=== PATIENT | male | born 1955 | race Caucasian/White ===

== ENCOUNTER → 2019-09-10 | Outpatient (CLI) | payer BC ==
[2016-02-25 11:45] VITALS: BP 125/78
[~2019-09-10] MED LIST: AMLODIPINE BESYL5 MG PO; PRAVASTATIN SOD10 MG PO
== END ==
LOC: RAD 08:32
DX: N32.89 Other specified disorders of bladder (principal); N21.0 Calculus in bladder; N28.1 Cyst of kidney, acquired
CPT/HCPCS: Q9967

== ENCOUNTER 2021-07-20 08:50 | Observation (INO) | payer MEDICARE ==
[~2021-07-20] VITALS: Ht 10 cm; Wt 85.2 kg
[2021-07-20] MEDS ORDERED: LYMEPAK100 MG PO (09:22)
[2021-07-20] MEDS ORDERED: PREDNISONE10 MG PO (09:23)
[2021-07-20] MEDS ORDERED: PRAVASTATIN SOD40 MG PO (09:24)
[2021-07-20 09:41] LABS: BASO # 0.04 K/mm3 (0.02-0.10); EOS # 0.07 K/mm3 (0.04-0.40); EOS % 0.4 % (0.0-4.0); HEMATOCRIT 46.5 % (42.0-52.0); LYMPH# 0.87 K/mm3 (1.50-4.00); MEAN CELL VOLUME 83 fl (78-100); MEAN CORPUSCULAR HEMOGLOBIN 29 pg (27-31); MEAN CORPUSCULAR HGB CONC 34 g/dL (33-37); MEAN PLATELET VOLUME 9.8 fl (7.4-10.4); MONO # 0.81 K/mm3 (0.20-0.80); NEU # 13.77 K/mm3 (1.40-6.50); PLATELET COUNT 266 K/mm3 (130-400); RED BLOOD COUNT 5.62 M/mm3 (4.20-5.60); RED CELL DISTRIBUTION WIDTH 12.5 % (11.5-14.5); WHITE BLOOD COUNT 15.6 K/mm3 (4.8-10.8)
[2021-07-20 10:01] LABS: ALBUMIN 4.7 g/dL (3.4-4.8); POTASSIUM 3.6 mmol/L (3.5-5.1)
[2021-07-20 10:02] LABS: CALCIUM 10.1 mg/dL (8.3-10.5)
[2021-07-20] MEDS ORDERED: FISH OIL 1000MG1 CAP PO (10:15)
[2021-07-20] MEDS ORDERED: CENTRUM ADULTS1 EACH PO (10:16)
[2021-07-20] MEDS ORDERED: ACETAMINOPHEN500 M7 PO (10:16)
[2021-07-20 11:54] VITALS: BP 158/98
[2021-07-20 12:13] LABS: URINE WBC 0 /hpf (0-3)
[2021-07-20 12:48] LABS: URINE APPEARANCE CLEAR; URINE BILIRUBIN NEGATIVE (NEGATIVE); URINE BLOOD 50 ery/uL (NEGATIVE); URINE COLOR YELLOW; URINE GLUCOSE NEGATIVE (NEGATIVE); URINE KETONE NEGATIVE (NEGATIVE); URINE LEUKOCYTE ESTERASE NEGATIVE (NEGATIVE); URINE MUCUS PRESENT (NOT PRESENT); URINE NITRATE NEGATIVE (NEGATIVE); URINE PROTEIN(semi-quant) TRACE (NEGATIVE); URINE UROBILINOGEN NORMAL (NORMAL)
[2021-07-20 14:33] VITALS: BP 134/74
[2021-07-20 18:32] VITALS: BP 145/81
[2021-07-20 22:07] VITALS: BP 152/83
[2021-07-21 05:58] VITALS: BP 123/79
[2021-07-21 06:55] LABS: BASO # 0.03 K/mm3 (0.02-0.10); EOS # 0.24 K/mm3 (0.04-0.40); EOS % 2.9 % (0.0-4.0); HEMATOCRIT 42.3 % (42.0-52.0); HEMOGLOBIN 14.6 g/dL (13.5-18.0); MEAN CELL VOLUME 84 fl (78-100); MEAN CORPUSCULAR HEMOGLOBIN 29 pg (27-31); MEAN CORPUSCULAR HGB CONC 35 g/dL (33-37); MEAN PLATELET VOLUME 9.6 fl (7.4-10.4); MONO # 0.78 K/mm3 (0.20-0.80); NEU # 5.71 K/mm3 (1.40-6.50); PLATELET COUNT 221 K/mm3 (130-400); RED BLOOD COUNT 5.06 M/mm3 (4.20-5.60); RED CELL DISTRIBUTION WIDTH 12.3 % (11.5-14.5); WHITE BLOOD COUNT 8.3 K/mm3 (4.8-10.8)
[2021-07-21 07:02] LABS: POTASSIUM 3.2 mmol/L (3.5-5.1)
[2021-07-21 07:03] LABS: CALCIUM 8.6 mg/dL (8.3-10.5)
[2021-07-21] MEDS ORDERED: FLOMAX0.4 MG PO (09:40)
[2021-07-21] MEDS ORDERED: DOCUSATE SOD100 MG PO (09:40)
[2021-07-21] MEDS ORDERED: POTASSIUM CHLO20 ME4 PO (09:41)
[2021-07-21] MEDS ORDERED: HEALTHYLAX17 GM/Dose PO (09:41)
[2021-07-21 10:00] VITALS: BP 141/83
== END 2021-07-21 10:25 | disposition home or self-care (01) ==
LOC: ED 08:50 → MED/SURG 10:55
PROVIDERS: ADMIT Physician Assistant
DX: N40.1 Benign prostatic hyperplasia with lower urinary tract symptoms (principal); R33.8 Other retention of urine; R30.0 Dysuria; D72.829 Elevated white blood cell count, unspecified; N17.9 Acute kidney failure, unspecified; I10 Essential (primary) hypertension; K59.00 Constipation, unspecified; E78.5 Hyperlipidemia, unspecified; Z79.899 Other long term (current) drug therapy
CPT/HCPCS: G0378; J7030

== ENCOUNTER → 2023-02-16 | Outpatient (CLI) | payer MEDICARE ==
[~2023-02-16] MED LIST changes: +ACETAMINOPHEN500 M7 PO; +CENTRUM ADULTS1 EACH PO; +DOCUSATE SOD100 MG PO; +FISH OIL 1000MG1 CAP PO; +FLOMAX0.4 MG PO; +HEALTHYLAX17 GM/Dose PO; +LYMEPAK100 MG PO; +POTASSIUM CHLO20 ME4 PO; +PRAVASTATIN SOD40 MG PO; +PREDNISONE10 MG PO
== END ==
LOC: RAD 10:53
DX: R05.3 Chronic cough (principal)

== ENCOUNTER → 2024-01-16 | Outpatient (CLI) | payer MEDICARE | LOC: RAD 10:47 | DX: M17.12 Unilateral primary osteoarthritis, left knee (principal) ==